=== PATIENT | male | born 1955 | race Caucasian/White ===

== ENCOUNTER 2017-02-19 13:00 | Inpatient (IN) | payer BC ==
[~2017-02-19] VITALS: Ht 180.3 cm; Wt 105.9 kg
--- NOTE | ~2017-02-19 | OR ---
[facility] 61 Y [address] ROOM: [place] [address] LOCATION: [facility] ADMIT DATE: 02/19/2017 OR/Procedure Report DISCHARGE DATE: FAMILY PHYSICIAN: Ritchie Esqueda MD ATTENDING PHYSICIAN: PAUL BRAVO SURGEON: Paul Bravo MD WAREHOUSE AND RECEIVING SUPERVISOR: Saurav Ernst PA-C. DATE OF PROCEDURE: 02/20/2017 PREOPERATIVE DIAGNOSIS: Right intra-articular calcaneus fracture with shortening, displacement, and significant soft tissue envelope compromise secondary to supratherapeutic INR at the time of fall. POSTOPERATIVE DIAGNOSIS: Right intra-articular calcaneus fracture with shortening, displacement, and significant soft tissue envelope compromise secondary to supratherapeutic INR at the time of fall. PROCEDURE PERFORMED: 1. Placement of spanning, multiplaner, external fixator device to right lower extremity. 2. Use of intraoperative fluoroscopy, less than one hour. ANESTHESIA: General endotracheal anesthesia with peripheral nerve blocks. FLUIDS: See anesthesia report. ESTIMATED BLOOD LOSS: Minimal. TOURNIQUET: Right proximal thigh 250 mmHg. SPECIMEN: None. COMPLICATIONS: None. DISPOSITION: Stable in PACU. COUNTS: All counts correct. IMPLANTS: Include [place] Jens 3 multiplanar spanning external fixator set. INDICATIONS: Mr. Guerrero is a 61-year-old gentleman who underwent the noted procedures above. The risks, benefits, and alternatives pursuing surgical intervention were discussed the patient in detail. The patient elected to proceed with surgery. Anesthesia was consulted for their perioperative PATIENT'S NAME: TOO GUERRERO [facility] AGE: 61 Y [address] ROOM: [place] [address] LOCATION: [facility] ADMIT DATE: 02/19/2017 OR/Procedure Report DISCHARGE DATE: FAMILY PHYSICIAN: Ritchie Esqueda MD ATTENDING PHYSICIAN: PAUL BRAVO evaluation of the patient. I marked the patient's right lower extremity indicating the correct surgical site. DESCRIPTION OF PROCEDURE: The patient was brought from the holding area to the operating room. A time-out was performed. General endotracheal anesthesia was administered. Antibiotic prophylaxis was also administered. The right lower extremity was then prepped and draped in a sterile fashion. I introduced intraoperative fluoroscopy. I evaluated the calcaneus fracture. It was intra-articular, shortened, and there was significant soft tissue swelling. I began by making 2 surgical incisions in the tibia to place 2 soft drilling and tapping screws. Once the 2 screws were placed into the tibia, I turned my attention to the calcaneus. Under fluoroscopic guidance, I placed a threaded pin into the calcaneal tuberosity. I provisionally selected 2 bars with my physician assistant head cashier pulling direct traction. We pulled the calcaneus out to length. We then sequentially tightened the bars in order to hold our reduction. A fluoroscopic calcaneus (Valadez view) revealed the calcaneus was out to length. There was significant plantar flexion of the foot. Therefore, a pin was placed in the first metatarsal and attached to the main external fixator in order to create another plane of fixation to bring the ankle to neutral and provide tension along the gastrocsoleus complex. Final fluoroscopic images revealed a successful closed reduction and placement of a multiplanar spanning external fixator to the right lower extremity. Sterile dressings were placed in the form of Xeroform, followed by 4x4, Webril, and Wayne bandage to manage the swelling. The tourniquet was let down. The foot reperfused. A kickstand was added to the external fixator to offload the heel and to avoid further soft tissue compromise. The patient was then transferred to the operating room table onto the stretcher and extubated. He was brought to the recovery room in stable condition. There were no intraoperative complications noted. Of note, my PA, Saurav Ernst PA-C, played an integral role in the intraoperative care of this patient. This included preoperative positioning; intraoperative expert retraction; closing, and dressing functions. PATIENT'S NAME: TOO GUERRERO [facility] AGE: 61 Y [address] ROOM: [address] [place] [id number] LOCATION: [facility] ADMIT DATE: 02/19/2017 OR/Procedure Report DISCHARGE DATE: FAMILY PHYSICIAN: Ritchie Esqueda MD ATTENDING PHYSICIAN: PAUL BRAVO IMPRESSION: The patient is status post the noted procedures above. PLAN: The patient will be nonweightbearing on the right lower extremity. Encouraged to rest, ice, and elevate the extremity going forward. The hospitalist continue to manage the patient's concomitant medical comorbidities. The Pulmonology team will continue to follow the patient and make recommendations regarding his pulmonary health. Postoperative antibiotics will be administered per routine. DVT prophylaxis will be in the form of Lovenox. Pain control be as ordered. A CT scan of the foot will be obtained to further elucidate the fracture pattern now that it has been reduced. I will continue to follow the patient closely in the postoperative period. MD SARA CALVILLO/laura /[id number] d: 02/20/17 1100 t: 02/20/17 1331, OPERATIVE SUMMARY
--- NOTE | ~2017-02-19 | ENPV ---
Vascular Lower Extremities DVT Study Procedure Demographics Patient Name TOO GUERRERO JR Date of Study 02/22/2017 Patient Number [id number] Gender Male Date of 1955 Age 61 Visit Number [id number] Height Accession Number [id number] Weight Room Number G3313 BSA BMI Referring Lev Stone Md Interpreting Ori Pete MD Physician Physician Physician Ordering Lev Stone Car Barn Laborer Physician Bulk Coolers Installer Yahaira Keyes, RT,RVT,RDCS Conclusions Procedure Type of Study: Veins:Lower Extremities DVT Study, Lower Extremity Right. Appropriate Use Criteria:9 Patient Status:Routine. Study Location:Inpatient Portable. Technical Quality:Good visualization. - Preliminary reported to:Dr. Patton. Velocities are measured in cm/s ; Diameters are measured in cm Right Lower Extremities DVT Study Measurements Right 2D and Doppler Measurements + + + + +------+------+ + !Location !Visualized!Compressibility!Thrombosis!Signal!Reflux!Reflux ! ! ! ! ! ! ! !(sec) ! + + + + +------+------+ + !GSV Thigh !Yes !Yes !None !Phasic!No ! ! + + + + +------+------+ + !Common !Yes !Yes !None !Phasic!No ! ! !Femoral ! ! ! ! ! ! ! + + + + +------+------+ + !Prox !Yes !Yes !None !Phasic!No ! ! !Femoral ! ! ! ! ! ! ! + + + + +------+------+ + !Mid Femoral!Yes !Yes !None !Phasic!No ! ! + + + + +------+------+ + !Dist !Yes !Yes !None !Phasic!No ! ! !Femoral ! ! ! ! ! ! ! + + + + +------+------+ + !Popliteal !Yes !Yes !None !Phasic!No ! ! + + + + +------+------+ + !Gastroc !Yes !Yes !None !Phasic!No ! ! + + + + +------+------+ + !PTV !Yes !Yes !None !Phasic!No ! ! + + + + +------+------+ + !Peroneal !Yes !Yes !None !Phasic!No ! ! + + + + +------+------+ + Left Lower Extremities DVT Study Measurements Left 2D and Doppler Measurements + + + + +------+------+ + !Location !Visualized!Compressibility!Thrombosis!Signal!Reflux!Reflux ! ! ! ! ! ! ! !(sec) ! + + + + +------+------+ + !Common !Yes !Yes !None ! ! ! ! !Femoral ! ! ! ! ! ! ! + + + + +------+------+ + Signature dtt: SHENA CHEUNG dtsamir: 02/22/17 1551 Physician Self Edit
--- NOTE | ~2017-02-19 | DS ---
PATIENT'S NAME: TOO GUERRERO [facility] AGE: 61 Y [address] ROOM: [address] [place], [place] [address] LOCATION: [facility] ADMIT DATE: 02/19/2017 Discharge Summary DISCHARGE DATE: 02/23/2017 FAMILY PHYSICIAN: Ritchie Esqueda MD ATTENDING PHYSICIAN: Saeid Booker ADMITTING DIAGNOSIS: Right calcaneus fracture. DISCHARGE DIAGNOSIS: Right calcaneus fracture. SECONDARY DIAGNOSES: 1. History of pulmonary embolus, on chronic anticoagulation. 2. History of respiratory disorder with history of organophosphate insecticide poisoning. 3. Obstructive sleep apnea, on CPAP. 4. History of squamous cell skin cancer 5. History of back pain. 6. Asthma. 7. History of concussion. CONSULTATIONS: The patient's primary care physician for medical management. PROCEDURES: The patient underwent the following procedure on February 20, 2017, by Dr. Booker: placement of spanning, multiplanar, external fixator device to right lower extremity. HISTORY OF PRESENT ILLNESS: The patient is a pleasant 61-year-old gentleman, who prior to being seen had suffered a right foot injury after a ankit shaft from a truck fell on the floor and struck his right foot. The patient was seen at his PCP's office and determined to have a foot contusion. Later that week, the patient was up on an irrigation pivot when he fell landing on his feet. He fell approximately 12 feet to the ground. The patient was evaluated again and had x-rays done that showed a right calcaneus fracture after the fall. The patient, along with severe pain, also complained about swelling and bruising. The patient denied any previous traumas or surgeries to his right foot or ankle. Re-evaluation on the x-rays was done by his PCP, and at that time, the patient was referred to Orthopedic care. HOSPITAL COURSE: The patient was admitted to the hospital on February 19, 2017, after getting preoperative clearance from the patient's primary care provider and from Pulmonology. The patient was taken down to the OR on the above described day and underwent the above-described procedure and tolerated it well. Postoperatively, the patient was kept nonweightbearing of the right lower extremity. He did have postoperative pain control issues and had oral pain medications adjusted to find a regimen that adequately controlled his pain, so the patient could be PATIENT'S NAME: TOO GUERRERO [facility] AGE: 61 Y [address] ROOM: [address] [place], [place] [address] LOCATION: [facility] ADMIT DATE: 02/19/2017 Discharge Summary DISCHARGE DATE: 02/23/2017 FAMILY PHYSICIAN: Ritchie Esqueda MD ATTENDING PHYSICIAN: Saeid Booker discharged home. There was also concern from the patient's family, since he had been off his Coumadin for a short period time prior to surgery, about him developing a blood clot. A lower venous Doppler was done of his right leg that was negative for any DVTs. After his pain medication was optimized and the patient was cleared medically, he was discharged home on February 23, 2017. DISCHARGE INSTRUCTIONS: The patient is to follow up with Dr. Booker in approximately 2 weeks after discharge. He is to follow up with his PCP's office about his INR. He is to be nonweightbearing of his right lower extremity. He is to resume his home diet. The patient will have home health for dressing changes and other services that will be arranged after discharge. DISCHARGE MEDICATIONS: New medications: 1. Gabapentin 300 mg p.o. b.i.d. 2. Oxycodone 10 p.o. b.i.d. 3. Milk of magnesia 30 mL orally every day as needed for constipation. 4. Hydromorphone 2 mg 1-2 tabs p.o. every 4 hours as needed for pain. 5. Diazepam 5 mg half to one tab every 6 hours as needed for muscle spasms. 6. Dulcolax suppository 10 mg rectally daily as needed for constipation. 7. Lovenox 40 mg subcu daily for DVT prophylaxis. Otherwise, the patient is to continue his pre-admission medications as instructed by his Internal Medicine doctor. DISCHARGE STATUS: Good. CARLOS ENRIQUE KEMP PA-C FOR MD JARAD CALVILLO/laura /[id number] d: 02/27/17 0442 t: 02/27/17 1009, DISCHARGE SUMMARY
[~2017-02-19 13:00] MED LIST: CELEBREX200 MG PO; COUMADIN **IA1 MG PO; COUMADIN **IA10 MG PO; DELTASONE20 MG PO; FLOMAX0.4 MG PO; LIPITOR10 MG PO; NORCO 7.5-3251 EACH PO; SYMBICORT 16010.2 GM INH
[2017-02-19] MEDS ORDERED: ASPIRIN LO-DOSE81 MG PO (17:17)
[2017-02-19] MEDS ORDERED: SINGULAIR10 MG PO (17:19)
--- NOTE | 2017-02-19 17:26 | NUR ---
PT ARRIVED TO FLOOR AT 1635. R CALCANEOUS FX FOR DR BRAVO. HX PE, HIGH CHOLESTEROL, CURRENT NUMBNESS TO RLE, ISAAC BUT HAS NOT BEEN WEARING CPAP AT HS, BPH, SHINGLES. PT ADMITTED FOR PRE OP CLEARANCE. DOES TAKE COUMADIN, BUT HAS NOT TAKEN SINCE 02/14 DUE TO INCREASED INR. ALSO RECENTLY DROPPED A PIPE ON R FOOT, SO TOES ARE ECCHYMOTIC AND EDEMATOUS WELL THE ANKLE. IV STARTED TO L FA. EKG COMPLETED. PULMONOLOGY CONSULTED AND IN TO SEE.
[2017-02-19 17:29] LABS: BASOPHIL % 0.2 %; EOSINOPHIL # 0.1 K/uL (0.0-0.5); EOSINOPHIL % 0.4 %; HEMOGLOBIN 14.6 g/dL (11.0-16.0); IMMATURE GRANULOCYTE # 0.2 K/uL (0.0-0.3); IMMATURE GRANULOCYTE % 1.4 %; LYMPHOCYTE # 0.7 K/uL (0.8-4.0); LYMPHOCYTE % 4.9 %; MCH 30.9 pg (27.0-34.0); MCHC 33.2 gm/dL (32.0-36.5); MCV 93.2 fl (83.0-98.0); MONOCYTE # 0.9 K/uL (0.0-1.0); MONOCYTE % 6.4 %; MPV 9.1 fl (9.4-12.4); NEUTROPHIL # (ANC) 11.8 K/uL (1.4-9.0); NEUTROPHIL % 86.7 %; NRBC % 0 /100WBC (0-0.00); PLATELET COUNT 170 K/uL (150-450); RBC 4.72 M/uL (3.50-5.50); RDW-CV 12.7 % (11.9-14.6); WBC 13.7 K/uL (4.0-11.0)
[2017-02-19 17:43] LABS: ANION GAP 10.4 (10.0-19.0); CALCIUM 8.4 mg/dL (8.5-10.5); CREATININE 1.1 mg/dL (0.6-1.3); POTASSIUM 4.4 mMol/L (3.7-5.1)
[2017-02-19] MEDS ORDERED: XOPENEX HF45 MCG/INH INH (17:50)
[2017-02-19 18:40] LABS: INR - (THERAPEUTIC) 1.02 (0.92-1.07); PROTIME 10.7 SECONDS (9.8-11.4); PTT 24 SECONDS (25-32)
--- NOTE | 2017-02-20 05:06 | NUR ---
Significant Event PATIENT ALERT/ORIENTED X3, MOVES EXTRIMITES X4, VITAL SIGNS WNL, AMBULATES TO BATHROOM VIA CRUTCHES AND 1 ASIST, NPO SINCE MIDNIGHT, INFORMED OF SURGERY TIME, PATIENT HAS NO CONCERNS AT THIS TIME Follow up:
--- NOTE | 2017-02-20 12:59 | NUR ---
Pt was back from surgery and having pain and then walked in. I will come back and introduce myself and services. Pt will be non wt bearing for about 6-8 weeks per daughter.
--- NOTE | 2017-02-20 13:02 | NUR ---
Significant Event: Pt returned from pacu @ 1135. Has R) ankle external fixator/acewrap. C/d/i. Had abductor canal and popliteal block. Numbness to R) toes, unable to wiggle toes due to block. Toes warm and pink with bruising noted. SL L) FA. O2 3L. Uses cpap @ hs. R) Foot elevated on pillows. 1st 30 min VS due @ 1245. Follow up:
--- NOTE | 2017-02-20 16:52 | NUR ---
Significant Event: Patient is alert and oriented x 3. VSS on 1L of O2. Wears CPAP at night. Up to bedside commode with 1 assist and gaitbelt. Nonweightbearing to right lower extremity. External fixator and dressing to right lower extremity intact. Patient states right foot is numb, unable to wiggle toes. Left forearm IV, saline locked. Reglan given at 1250 for nausea, patient states nausea is gone now. Curtis given for pain last at 1523 and Morphine given at 1631. Patient is pleasant and cooperative with cares. Follow up:
[2017-02-21 05:33] LABS: BASOPHIL % 0.1 %; EOSINOPHIL # 0.1 K/uL (0.0-0.5); EOSINOPHIL % 0.4 %; HEMATOCRIT 40.4 % (37.0-53.0); HEMOGLOBIN 13.2 g/dL (11.0-16.0); IMMATURE GRANULOCYTE # 0.2 K/uL (0.0-0.3); LYMPHOCYTE # 1.1 K/uL (0.8-4.0); LYMPHOCYTE % 7.7 %; MCH 30.7 pg (27.0-34.0); MCHC 32.7 gm/dL (32.0-36.5); MONOCYTE # 0.9 K/uL (0.0-1.0); MONOCYTE % 5.9 %; MPV 9.1 fl (9.4-12.4); NEUTROPHIL # (ANC) 12.6 K/uL (1.4-9.0); NEUTROPHIL % 84.9 %; NRBC % 0 /100WBC (0-0.00); PLATELET COUNT 145 K/uL (150-450); RDW-CV 12.7 % (11.9-14.6); WBC 14.8 K/uL (4.0-11.0)
--- NOTE | 2017-02-21 05:37 | NUR ---
Significant Event: Pt alert and oriented. Non weight bearing right lower extremity. Weaned 02 to RA. Attempted to wear c-pap although did not tolerate the constant beeping so pt did refused it. Is saline locked and tolerated regular diet. c/o constipation did give prune juice and MOM at HS with no results at this time. Pain block wore off around 0330 and pt now able to feel and wiggle toes. Last pain meds given at 0330 as well. Follow up: Cont to monitor.
[2017-02-21 05:40] LABS: INR - (THERAPEUTIC) 0.98 (0.92-1.07); PROTIME 10.3 SECONDS (9.8-11.4)
--- NOTE | 2017-02-21 10:45 | NUR ---
Introduced self/role to patient, his daughter and Emily. They live in [place]. Patient already has a walker, crutches, tall toilets, shower bench and just 3 steps to get inside with a hand rail on one side. He will have help from family. Would prefer [facility] for dressing changes. No preference on company. Put my name on his marker board, will follow up with them tomorrow after arrangements have been made. He was told he would possibly go home tomorrow. 1105 Called Abelino with [facility] #[phone]. She will handle C referral from here.
--- NOTE | 2017-02-21 16:12 | NUR ---
Significant Event: pt alert and oriented. up with 1 assist to the bathroom hever well with crutches. ice to rt ankle area. fixator on and intact. some bloody drainage to gauze at pin sites. norco for pain. order changed to . last at 1350. family in the room this shift. home tomorrow. Follow up:
--- NOTE | 2017-02-22 04:07 | NUR ---
Significant Event:Dressing is clean, dry and intact. Extenal fixator to R) leg. Scant drainage. Can wiggle toes and denies numbness and tingling. MOM at 0357 and prune juice. Standby assist. [place] at 0137. [place] at 0348. Follow up:
[2017-02-22 05:26] LABS: BASOPHIL % 0.2 %; EOSINOPHIL # 0.1 K/uL (0.0-0.5); EOSINOPHIL % 1.2 %; HEMATOCRIT 41.1 % (37.0-53.0); HEMOGLOBIN 13.6 g/dL (11.0-16.0); IMMATURE GRANULOCYTE # 0.1 K/uL (0.0-0.3); IMMATURE GRANULOCYTE % 0.9 %; LYMPHOCYTE # 1.8 K/uL (0.8-4.0); LYMPHOCYTE % 16.1 %; MCH 31.6 pg (27.0-34.0); MCHC 33.1 gm/dL (32.0-36.5); MCV 95.4 fl (83.0-98.0); MONOCYTE # 0.7 K/uL (0.0-1.0); MONOCYTE % 6.2 %; MPV 9.2 fl (9.4-12.4); NEUTROPHIL # (ANC) 8.4 K/uL (1.4-9.0); NEUTROPHIL % 75.4 %; NRBC % 0 /100WBC (0-0.00); PLATELET COUNT 144 K/uL (150-450); RBC 4.31 M/uL (3.50-5.50); WBC 11.2 K/uL (4.0-11.0)
[2017-02-22 05:33] LABS: INR - (THERAPEUTIC) 0.99 (0.92-1.07); PROTIME 10.4 SECONDS (9.8-11.4)
--- NOTE | 2017-02-22 12:15 | NUR ---
Followed up with patient and his family. Still no additional needs besides HHC when he leaves. Abelino with [facility] has her information on the chart and she is setting up HHC for patient. Her #[phone]
--- NOTE | 2017-02-22 15:10 | NUR ---
Significant Event:Aox3. VSS. CSM WNL. Patient complains of stabbing pain in bottom of heal. History of blood clots. Family wanted a dopler to rule out DVT. INR-0.99. Up with SBA with crutches. Changed pain medicine to dilaudid and valium and started oxycontin BID. Dressing was changed today by Saurav Maharaj Patient may go home tomorrow if pain controlled. Follow up:
--- NOTE | 2017-02-23 04:54 | NUR ---
Significant Event: Alert/oriented x3. Plans to go home today. 1 assist with crutches. Voids well per urinal, 2 small BMs, had suppository this shift, one on day shift yesterday. VSS. CSM WNL. Hx blood clots. Dressing changed by ANAHY Mg yesterday, C/D/I. Oxycontin 30 mg at 2005; Valium 5 mg at 2150; Neurontin at 2006. Slept most of night since 2200. Room air. Follow up:
[2017-02-23 05:53] LABS: INR - (THERAPEUTIC) 1.05 (0.92-1.07)
[2017-02-23] MEDS ORDERED: LOVENOX 4040 MG/0.4 SUB-Q (14:43)
[2017-02-23] MEDS ORDERED: DULCOLAX10 MG R (14:45)
[2017-02-23] MEDS ORDERED: VALIUM5 MG PO (14:46)
[2017-02-23] MEDS ORDERED: DILAUDID 2MG(HYD2 MG PO (14:47)
[2017-02-23] MEDS ORDERED: MILK OF MA400 MG/5 M PO (14:48)
[2017-02-23] MEDS ORDERED: NEURONTIN300 MG PO (14:49)
[2017-02-23] MEDS ORDERED: OXYCONTIN EXTEN10 MG PO (14:49)
--- NOTE | 2017-02-23 17:03 | NUR ---
Pt discharged to go home with spouse at 1600. Pt up and about with crutches and standby asst with crutches and gait belt. Pt has kept leg elevated and iced when in bed or recliner. Dressing with brianne around external fixator dry and intact. Rt toes edematous, bruised, warm, moves them well. Says tingling at times. Pt has had dilaudid po for breakthrough pain and also oxycontin. Rates pain 5-7. Pt had small BM with enema and says feeling better. Pt and spouse verbalize understanding of discharge instructions, home meds, home health visits, keep drsg dry, call for Drs appts, ice, elevate and NWB on Rt. Pt discharged to home per w/c to car in stable condition. Has own crutches and has gait belt.
== END 2017-02-23 16:33 | disposition home health service (06) | DRG 563 ==
LOC: EDSTATUS 13:00 → G3N 16:28
PROVIDERS: Physician Assistant Medical; ADMIT Orthopaedic Surgery Adult Reconstructive Orthopaedic Surgery
PROC: 0SH Lower Joints, Insertion (ICD-10-PCS; principal; 2017-02-19)
DX: S92.061B Displaced intraarticular fracture of right calcaneus, initial encounter for open fracture (principal); J67.9 Hypersensitivity pneumonitis due to unspecified organic dust; D72.829 Elevated white blood cell count, unspecified; G47.33 Obstructive sleep apnea (adult) (pediatric); R79.1 Abnormal coagulation profile; W17.89XA Other fall from one level to another, initial encounter; Y93.9 Activity, unspecified
CPT/HCPCS: C1713; J0690; J1170; J1650; J2270; J2765; J3010; J7030; J7120; J7512